=== PATIENT | male | born 2000 | race African-American/Black ===

== ENCOUNTER 2022-05-10 12:46 | Outpatient (RCR) | payer OTHER, SELFPAY | END 2022-08-10 13:21 | disposition home or self-care (01) | PROVIDERS: PCP Internal Medicine Nephrology; Visit Provider Family Medicine | DX: S43.002D Unspecified subluxation of left shoulder joint, subsequent encounter (principal); Z51.89 Encounter for other specified aftercare | CPT/HCPCS: 97110; 97161 ==

== ENCOUNTER 2022-07-06 23:00 | Emergency (ER) | payer OTHER, SELFPAY ==
[2022-07-06 23:17] VITALS: BP 146/100; PULSE 74; RESP 20; TEMP 37.1; O2SAT 97; BMI 25.1
--- NOTE | 2022-07-06 23:33 | CRLHL7_ITS ---
For Patients: As a result of the Cures Act, medical imaging exams and procedure reports are released immediately into your electronic medical record. You may view this report before your referring provider. If you have questions, please contact your health care provider. Indication: Shoulder injury. Technique: Right shoulder 2 views. Comparison: None. Findings/Impression: Anterior dislocation of the glenohumeral joint. No fracture. Remainder of the exam is unremarkable. Dictated by Tae Montana MD @ 07/07/2022 12:08:42 AM (Electronically Signed)
[2022-07-06] MEDS: HYDROmorphone 0.5 mg/0.5 ml inj 1 MG IM (23:37)
[2022-07-07 00:12] VITALS: BP 137/92; PULSE 80; RESP 16; O2SAT 96
--- NOTE | 2022-07-07 01:03 | CRLHL7_ITS ---
For Patients: As a result of the Century Cures Act, medical imaging exams and procedure reports are released immediately into your electronic medical record. You may view this report before your referring provider. If you have questions, please contact your health care provider. INDICATION: Post reduction COMPARISON: Pre reduction films from earlier this evening at 2348 hours TECHNIQUE: The right shoulder was examined using portable technique at 0115 hours with AP and Y views for a total of two views. FINDINGS: The osseous structures are in anatomic alignment without fracture or dislocation following reduction. There is anatomic alignment of the humeral head and glenoid. There is no sign of a bony [place] or Hill-Sachs fracture. The visualized chest is clear. IMPRESSION: Satisfactory appearance of the right shoulder following reduction. Dictated by Reagan Ridley MD @ 07/07/2022 1:34:35 AM (Electronically Signed)
[2022-07-07 01:36] VITALS: BP 146/78; PULSE 74; RESP 16; O2SAT 95
--- NOTE | 2022-07-07 03:12 | ED.GENADULT ---
HPI - General Adult General Chief complaint: Shoulder Injury/Pain Stated complaint: Right Shoulder Injury Time Seen by Provider: 07/06/22 23:21 History of Present Illness HPI narrative: 22-year-old young man accompanied by I believe girlfriend, with complaint of right shoulder and upper arm area pain. Was playing tennis and ran into a pole with his upper arm or shoulder. He indicates the inferior deltoid area as likely point of impact. Did not hit his head. There was no loss of consciousness. No neck or back pain. The pain is limiting some movement of his right arm but he has no apparent loss of sensation. No prior history of injury here or at least dislocation. 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 Later conversation reveals that trainers had thought that shoulder seem a little loose. Related Data Home Medications Medication Instructions Recorded Confirmed triamcinolone acetonide 0.1 % applic topical .1-2 times a day 07/06/22 topical cream Allergies Allergy/AdvReac Type Severity Reaction Status Date / Time No Known Drug Allergies Allergy Verified 07/06/22 23:21 Review of Systems Status of ROS: Reports: 6 or more systems reviewed and unremarkable except as noted in History and below [facility] Medical History Eczema Social History Smoking Status: Never smoker How often do you have a drink containing alcohol: never AUDIT-C Alcohol total score: 0 Non-prescribed substance use: denies use Exam Narrative: Exam Narrative: Pleasant. Easily conversant. Breathing easily. Right arm is propped on a pillow. Well-perfused peripherally. Sensation intact. Head looks to be atraumatic. Cranial nerves 2-12 look to be intact. Heart in a regular rate and rhythm. Examination of the right arm shows is sulcus inferior to the chromium. Stressing of the humerus itself does not seem to elicit more pain. Movement specifically at the shoulder joint seems to be area of discomfort. Again strong peripheral pulses. Const: Vital Signs, click to edit/add: Vital Signs - 24 hr 07/06/22 23:17 07/07/22 00:12 07/07/22 01:36 Temperature 98.8 F Pulse Rate [Left P ulse Oximeter] 74 80 74 Respiratory Rate 20 16 16 Blood Pressure [Le ft Upper Arm] 146/100 H 137/92 H 146/78 H Pulse Oximetry 97 96 95 Oxygen Delivery Me thod Room Air Room Air Room Air Documenting provider has reviewed patient's vital signs: yes Course Vital Signs Vital signs: Initial Vital Signs Temperature 98.8 F 07/06/22 23:17 Temperature Source Temporal Artery Scan 07/06/22 23:17 Pulse Rate 74 07/06/22 23:17 Pulse Rhythm 07/06/22 23:17 Respiratory Rate 20 07/06/22 23:17 Blood Pressure 146/100 H 07/06/22 23:17 Blood Pressure Mean 115 07/06/22 23:17 Blood Pressure Position Sitting 07/06/22 23:17 Pulse Oximetry 97 07/06/22 23:17 Oxygen Delivery Method 07/06/22 23:17 Vital Signs Temperature 98.8 F 07/06/22 23:17 Pulse Rate 74 07/06/22 23:17 Respiratory Rate 20 07/06/22 23:17 Blood Pressure 146/100 H 07/06/22 23:17 Pulse Oximetry 97 07/06/22 23:17 Oxygen Delivery Method 07/06/22 23:17 Temperature 98.8 F 07/06/22 23:17 Pulse Rate 74 07/07/22 01:36 Respiratory Rate 16 07/07/22 01:36 Blood Pressure 146/78 H 07/07/22 01:36 Pulse Oximetry 95 07/07/22 01:36 Oxygen Delivery Method 07/07/22 01:36 Medical Decision Making MDM Narrative Medical decision making narrative: I would suspect dislocated shoulder given mechanism and clinical appearance. Ordered two view of the right shoulder which reviewed by me does show complete anterior dislocation of the humeral head. I think Mr. Klein has a relatively high pain tolerance and a might be able to attempt relocation without general sedation. He would like some pain relief and in anticipation of fully conscious relocation, was given 1 mg IM Dilaudid. This did seem to help. Furthermore I did inject 8-9 mL of 0.25% bupivacaine into the joint space after prepping with Betadine. Seemed to tolerate more motion at the shoulder joint and so with assistance for countertraction applied [place] technique resulting in what appeared to be relocation. I was not able to palpate the humeral head though with good deal of a muscle in the area and swelling could not be sure. Postreduction film did confirm by my read humeral head relocation in the glenoid fossa. Placed in an arm sling. Discharge Plan Discharge Clinical Impression: Anterior shoulder dislocation Patient Disposition: Home w/ Parent or Adult Condition: Improved Instructions: Shoulder Dislocation (ED) Additional Instructions: Can ice your shoulder few times daily over the next few days. I like those ice bags with the screw top lids. Fill with ice and then water. Can take up to 800 mg of ibuprofen per dose or up to 1000 mg of acetaminophen per dose; these can be combined. Alternative to the ibuprofen might be taking up to 500 mg of naproxen 2 times daily. Would follow up with your trainers and affiliated Sports Medicine provider. Take them the handouts on rehabilitation and see if they approve. Wear the arm sling over this next week when up and around and probably loosely at night maybe propped on a pillow so you don't throw your arm around unaware. Prescriptions: No Action triamcinolone acetonide 0.1 % cream TOPICAL .1-2 times a day Label Comments: APPLY TOPICALLY TO ECZEMA 1 TO 2 TIMES DAILY NEEDED Follow Up/Referrals: Troy Doran JR, DO [Primary Care Provider] - Stand Alone Forms: [employer] Info Instructions
== END 2022-07-07 01:41 | disposition home or self-care (01) ==
PROVIDERS: Emergency Provider Family Medicine; PCP Internal Medicine Nephrology
DX: S43.014A Anterior dislocation of right humerus, initial encounter (principal); W22.8XXA Striking against or struck by other objects, initial encounter; Y93.73 Activity, racquet and hand sports
CPT/HCPCS: 23650; 73030; 99284; J1170